=== PATIENT | female | born 1980 | race African-American/Black ===

== ENCOUNTER 2019-07-25 12:49 | Emergency (ER) | payer OTHER ==
[~2019-07-25] VITALS: Ht 172.7 cm; Wt 93.3 kg
[2019-07-25 12:49] VITALS: BP 118/79
== END 2019-07-25 13:16 | disposition home or self-care (01) ==
LOC: M ED 12:49
DX: O9A.212 Injury, poisoning and certain other consequences of external causes complicating pregnancy, second trimester (principal); S80.12XA Contusion of left lower leg, initial encounter; W18.39XA Other fall on same level, initial encounter; Y92.018 Other place in single-family (private) house as the place of occurrence of the external cause; Z3A.27 27 weeks gestation of pregnancy

== ENCOUNTER 2019-10-28 08:43 | Inpatient (IN) | payer OTHER ==
[~2019-10-28] VITALS: Ht 172.7 cm; Wt 107.7 kg
[2019-10-28] VITALS (39 sets, daily range): BP systolic 94–180; BP diastolic 53–107
[2019-10-28] MEDS ORDERED: LACTATED RINGER'S 1000 ML IV STA ×2 (09:30→18:36)
[2019-10-28] MEDS ORDERED: miSOPROStol 50 MCG 1/2 TAB (S0191) PO ONE ×2 (09:30→15:45)
[2019-10-28] MEDS ORDERED: FAMO1TAB25 PO (10:00)
[2019-10-28] MEDS ORDERED: PRENTAB9 PO (10:00)
--- NOTE | 2019-10-28 10:07 | HPEPDOC ---
Obstetrical History & Physical General Date of Admission Oct 28, 2019 at 08:43 History of Present Illness Ms. Peace is a 39yo at 41+0wks gestation presents to D for post dates ind uction. She is here today with her spouse. She reports +FM, denies LOF/VB/CTX. Her EDC is 21OCT2019; These dates are based on IVF/embryo transfer on 02FEB2019. Her is complicated by excessive weight gain (79lbs) and uterine fibroids (largest is anterior at 3.87cm). Blood type is O Positive, GBS Negative, HIV Negative, GGlucose screen WNL (124). 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 history Past Medical History Surgical History: Diagnostic laparoscopy Family History Significant Family History: No pertinent family hx Social History Marital Status: Family situation: Spouse/partner home Psychosocial History: No pertinent psych hx * Smoker: non-smoker Alcohol: Denies Drugs: denies Abuse Violence Screening Have you been hit/kicked/slapp: No Have you been sexually assault: No Imunizations Tdap status: current Influenza Status: current Allergies Coded Allergies: No Known Allergies (Unverified , 07/25/19) Medications No Active Prescriptions or Reported Meds Physical Examination Physical Examination O: VSS, initial BP mild range elevated, repeat WNL, afebrile; pt denies TINSLEY/visual changes/RUQ pain FHR: 135, minimal variability (periods of moderate variability present), accels present, no decels CTX: present, but occasional; pt denies feeling any VE at 0924: 1.5/40/-3, moderate consistency and posterior; no bloody show EFW by ciaran [id number] GENERAL: Alert and oriented times three. BREAST: . ABDOMEN: Gravid and non-tender to touch FETUS: Is vertex by Luan and SVE HEART RATE: Regular rate. LUNGS: Observed nonlabored breathing. EXTREMITIES: Bilateral pedal edema. Laboratory Data 24H LABS Laboratory Tests 2 10/28/19 08:53: Serology Scanned Report Hepatitis B Testing Pertinent Laboratoy Data Blood Type: O+ RBC Antibody Screen: Negative HIV: Negative Hepatitis B: Negative Rapid Plasma Reagin: Nonreactive Rubella: Immune Varicella: Immune Chlamydia/Gonorrhea: Negative Group B Streptococcus: Negative Anatomy Ultrasound Ultrasound Date: Jun 04, 2019 Placenta Location: Anterior (anterior, posterior, and right lateral) Normal Anatomy: Yes Placenta Previa: No Other Ultrasounds 09/03/2019: Growth US at 33+1wks, 63%tile Assessment/Plan Assessment A: Ms. Peace is a 39yo at 41+0wks admitted for IOL d/t post dates. Category II FHT d/t minimal variability. GBS Negative, O Positive blood type. Plan P: Admit to LND, Consented for IOL and delivery. PIV start, admission labs collected LR bolus, then can hydrated PO Regular diet while on cytotec Start IOL via buccal cytotec and CRB Will consider pitocin when appropriate CEFM x2 for one hour after cytotec; intermittent after with Category I FHT; continuous when appropriate Anticipate Consult with OB if indicated SHAWN ROBERTS CNM Oct 28, 2019 10:07
[2019-10-28 10:08] LABS: HEMATOCRIT 39.2 % (36.0-47.0); HEMOGLOBIN 13.4 g/dl (12.0-15.5); MEAN CORPUSCULAR HEMOGLOBIN 31.1 pg (27.0-33.0); MEAN CORPUSCULAR HGB CONC 34.2 g/dl (32.0-36.5); PLATELET COUNT, AUTOMATED 141 10^3/uL (150-450); RED BLOOD COUNT 4.31 10^6/uL (4.00-5.40); WHITE BLOOD COUNT 6.5 10^3/uL (4.0-10.0)
[2019-10-28 11:00] LABS: ALT/SGPT 27 U/L (12-78); BILIRUBIN,TOTAL 0.2 MG/DL (0.2-1.0); GLOMERULAR FILTRATION RATE > 60.0 (>60); LDH LACTATE DEHYDROGENASE 204 U/L (84-246); URIC ACID 6.5 MG/DL (2.6-6.0)
[2019-10-28 11:36] LABS: TOTAL PROTEIN,RANDOM URINE 32.3 MG/DL (0.0-12.0)
[2019-10-28] MEDS: FAMOTIDINE 20 MG TAB PO SCH ×2 (13:56→21:00)
[2019-10-28] MEDS ORDERED: SLF 3 ML SYR IV PRN (16:00)
--- NOTE | 2019-10-28 16:06 | IPNPDOC ---
Obstetrical Progress Note Date of Service Oct 28, 2019 Subjective Ms. Peace is a 39yo at 41+0wks undergoing IOL for post date. She has a new dx of GHTN d/t onset of mild and severe range BPs noticed after admission. She continues to deny TINSLEY/Visual changes/RUQ pain. She did have c/o indigestion (has had GERD during ); she received Pepcid and felt relief. She has been able to rest throughout the day thus far. Multiple family members are at the bedside. Objective O: BP range from normotensive to mild range. When severe range were noted, her c uff was changed and then BP was taken manually. Her last BP was 139/78. FHR: 135, moderate variability, + accels, no decels noted CTX: irregular and mild; pt only feels cramps VE: deferred at this time Pre-E labs: Uric acid 6.5; platelets 141, PC ratio 0.231, AST/ALT WNL Labs reviewed with Dr. Rouse Vital Signs Date Time Temp Pulse Resp B/P (MAP) Pulse Ox O2 Delivery O2 Flow Rate FiO2 10/28/19 15:09 66 139/78 (98) 10/28/19 14:09 97.7 18 100 Room Air 97.7 Assessment and Plan Status: Reassuring Group B Streptococcus: Negative Anticipate: Vaginal Delivery Additional Comments A: PDIOL, GHTN (currently asymptomatic and BPs range from mild range to normotensive); Category I FHT. S/P Cytotec #1 P: Close monitoring of BPs Repeat buccal cytotec (2nd dose) CEFM per protocol; intermittent monitoring when able to with Category I FHT Will reexamine 4 hours after administration of 2nd dose PO and IV hydration, clear liquid diet Anticipate Consult with OB if indicated SHAWN ROBERTS CNM Oct 28, 2019 16:06
[2019-10-28] MEDS ORDERED: LR 1,000 ML IV SCH ×2 (18:36→22:27)
[2019-10-28] MEDS ORDERED: OXYTOCIN DRIP 30 UNITS in IV 1 EA IV SCH (19:45)
--- NOTE | 2019-10-28 19:54 | IPNPDOC ---
Obstetrical Progress Note Date of Service Oct 28, 2019 Subjective Ms. Peace is a 39yo GP0 at 41wks undergoing IOL for Postdates and GHTN. She is s/p 2 doses of PO cytotec. She reports regular contractions that she has to breath through and is feeling uncomfortable. She reports bloody show, +FM; she denies LOF. Objective O: VSS, BPs remain normotensive. Her last BP was 167/89, but was taken during a contraction. The RN has not repeated another BP reading because pt had an emesis episode. Pt is asymptomatic, no TINSLEY/Visual disturbances, RUQ pain FHR 125, moderate variability, no 15x15 accels, intermittent late decelerations noted (interventions performed, LR bolus, repositioned) CTX: 2-3, regular, mild/moderate by palpation VE: 3.5/70/-3, posterior position, consistency is soft, bloody show present Vital Signs Date Time Temp Pulse Resp B/P (MAP) Pulse Ox O2 Delivery O2 Flow Rate FiO2 10/28/19 18:21 65 18 158/93 (114) 10/28/19 17:01 97.1 97.1 10/28/19 14:09 100 Room Air Sterile Vaginal Examination Postion/Presentation: Cephalic presentation Assessment and Plan Group B Streptococcus: Negative Anticipate: Vaginal Delivery Additional Comments A: 39yo at 41wks, undergoing IOL, Category II FHT d/t intermittent late decelerations (interventions ongoing); entering into early labor P: CEFM x2 Close monitoring of Blood pressure; notify provider with severe range BPs or pt becomes symptomatic Start pitocin per low dose protocol Report provided to Dr. Rouse Continue to monitor maternal/ status Anticipate SHAWN ROBERTS CNM Oct 28, 2019 19:54
[2019-10-28] MEDS ORDERED: ONDANSETRON 4MG/2ML VIAL (J2405) As Ordered ONE (21:10)
[2019-10-28] MEDS ORDERED: ONDANSETRON 4MG/2ML VIAL (J2405) IV ONE (21:30)
[2019-10-28] MEDS ORDERED: SLF 3 ML SYR IV SCH (22:00)
[2019-10-28] MEDS ORDERED: FENTANYL 2MCG/ML ROPIVACAINE 0.2% IN 0.9% NACL 100ML IVBAG As Ordered ONE (22:25)
[2019-10-28] MEDS ORDERED: LACTATED RINGER'S 1000 ML IV ONE (22:30)
[2019-10-28] MEDS ORDERED: EPIDURAL/PCA KEYS XX PRN (22:45)
[2019-10-28] MEDS ORDERED: LACTATED RINGER'S 1000 ML IV PRN (22:45)
[2019-10-28] MEDS ORDERED: REFRIGERATOR IV KEYS XX PRN (22:45)
[2019-10-28] MEDS ORDERED: EPIDURAL COMMENT XX SCH (22:45)
[2019-10-28] MEDS ORDERED: ONDANSETRON 4MG/2ML VIAL (J2405) IV PRN (22:45)
[2019-10-28] MEDS ORDERED: diphenhydrAMINE INJ 50MG/ML VIAL (J1200) IV PRN (22:45)
[2019-10-28] MEDS ORDERED: ePHEDrine SULFATE 25 MG/5 ML(5MG/ML) SYRINGE IV PRN (22:45)
[2019-10-28] MEDS ORDERED: NALOXONE INJ 0.4 MG/1 ML VIAL (J2310) IV PRN (22:45)
[2019-10-28] MEDS ORDERED: FENTANYL/ROPIVACAINE/NACL BAG 100 ML EPIDURAL SCH (22:45)
[2019-10-29] VITALS (42 sets, daily range): BP systolic 109–202; BP diastolic 64–100
[2019-10-29 02:26] LABS: CORD GAS ABE V -9.2; CORD GAS HCO3 V 18.4 MEQ/L; CORD GAS O2 SAT V 59.1 %; CORD GAS PCO2 V 45.6 mmHg; CORD GAS PH V 7.223 UNITS; CORD GAS PO2 V 28.7 mmHg; CORD GAS SBC V 16.4 MEQ/L; CORD GAS TCO2 V 19.8 MEQ/L
[2019-10-29 02:27] LABS: CORD GAS ABE A -10.6; CORD GAS HCO3 A 19.3 MEQ/L; CORD GAS O2 SAT A 16.5 %; CORD GAS PCO2 A 60.3 mmHg; CORD GAS PH A 7.124 UNITS; CORD GAS PO2 A 14.2 mmHg; CORD GAS SBC A 14.6 MEQ/L; CORD GAS TCO2 A 21.2 MEQ/L
[2019-10-29] MEDS ORDERED: OXYTOCIN DRIP 30 UNITS in IV 1 EA IV SCH (02:55)
[2019-10-29] MEDS ORDERED: ACETAMINOPHEN TAB 650MG DOSE (2X325MG) PO PRN (03:00)
[2019-10-29] MEDS ORDERED: DOCUSATE SODIUM 100 MG CAP PO PRN (03:00)
[2019-10-29] MEDS ORDERED: METHYLERGONOVINE MALEATE 0.2 MG TAB PO PRN (03:00)
[2019-10-29] MEDS ORDERED: MOM 30ML SUSPENSION UDC PO PRN (03:00)
[2019-10-29] MEDS ORDERED: IBUPROFEN 600 MG TAB PO PRN (03:00)
[2019-10-29] MEDS ORDERED: DIBUCAINE 1% OINTMENT 30GM TOP PRN (03:00)
[2019-10-29] MEDS ORDERED: MEASLES,MUMPS,RUBELLA VACCINE INJ (MMR-II) (90707) SC SCH (03:00)
[2019-10-29] MEDS ORDERED: IBUPROFEN 800 MG TAB PO PRN (03:00)
[2019-10-29] MEDS ORDERED: ACETAMINOPHEN 500 MG TAB PO PRN (03:00)
[2019-10-29] MEDS ORDERED: ANUSOL HC CREAM 30GM TOP PRN (03:00)
[2019-10-29] MEDS ORDERED: OXYTOCIN INJ 10 UNITS/ML VIAL (J2590) IV ONE ×2 (03:00→12:45)
[2019-10-29] MEDS ORDERED: LABETALOL HCL 100 MG/20 ML VIAL IV STA ×2 (03:56→04:52)
[2019-10-29] MEDS ORDERED: RHOGAM 300 MCG (1500 IU) INJ (J2790) IM SCH (04:00)
[2019-10-29] MEDS ORDERED: SLF 3 ML SYR IV PRN (08:30)
[2019-10-29] MEDS: PRENATAL VITAMINS CHEWABLE TABLET PO SCH (08:36)
[2019-10-29] MEDS: FAMOTIDINE 20 MG TAB PO SCH ×2 (08:36→20:06)
--- NOTE | 2019-10-29 10:00 | IPN ---
DATE: 10/28/2019 This lady is a 39-year-old 1 at 41+ weeks of gestation, was here for induction of labor being post dates. Her risk factors is she is has gestational hypertension. She has gained 80 pounds in her and she has uterine fibroids. She was on initial examination, 1 cm, with category 1 strip and she was started on Cytotec. She has had two doses of Cytotec. Her blood pressures are variable. Sometimes they are midrange, sometimes they are high range. Her highest peak was 167/89. She never demonstrated severe range 160/100. Presently, pulse is 65, respirations are 18 and she is afebrile at 98.4. Pitocin was started. As the contractions weaned off to be 2-4 minutes apart and mild intensity, she was started on Pitocin at 4 milliunits at maximum, and she was having some significant bloody show and significant pelvic pain. On examination presently she has bulging membranes, 90% effaced, 7 cm, -2 station and she is planning on having an epidural. Our plan of care is that after the epidurals is in place and she has adequate pain control to do an AROM and allow her to progress. On anticipation that progress will occur post epidural, we will monitor closely for preeclampsia. Her pre- blood work showed her hemoglobin 13.4, hematocrit 39.2 and platelets were a little low at 141. In her chemistry the only significant was uric acid was elevated at 6.5. Her protein creatinine ratio protein is 0.22.
--- NOTE | 2019-10-29 13:37 | DN ---
DATE: 10/29/2019 This lady is a 39-year-old 1 who was admitted for induction of labor post dates at 41 weeks and advanced maternal age. She had a spontaneous vaginal delivery with epidural in place, live female infant, 6 pounds 9 ounces, 2970 grams, covered in meconium which was old. as of 6, 7, and 9 at 1, 5 and 10 minutes, respectively. Arterial pH 7.21, base excess -10.6. Venous pH 7.22, base excess -9.2. Baby was suctioned at the perineum and then was suction subsequently at the incubator. Placenta delivered spontaneously after, three-vessel cord, membranes and tissues intact and was meconium stained. Uterus contracted well down under Pitocin. She had one vaginal varicosity, which was oversewn with a [id number] in order to suppress bleeding. Sphincter was intact. Lateral, anterior and energy efficiency engineer cody were intact. Uterus contracted well under Pitocin. The patient and baby tolerated procedure well.
[2019-10-29] MEDS: SLF 3 ML SYR IV SCH (22:00)
[2019-10-30 02:01] VITALS: BP 136/86
[2019-10-30] MEDS: SLF 3 ML SYR IV SCH (06:00)
[2019-10-30 06:40] VITALS: BP 140/88
--- NOTE | 2019-10-30 06:43 | IPNPDOC ---
Text Note Date of Service The patient was seen on 10/30/19. NOTE patient is a 39 yo S/P FAVD ppd #1. Delivery complicated by placental abruption. Patient has history of bilateral salpingectomy for hydrosalpinx. She had IVF this . Today without concerns. She is tolerating normal activities without problem. Patient plans on breast feeding. vitals: normal NAD abd: nd, soft, nt, fundus @ u-1 le: no edema/erythema/tenderness a/p patient ppd #1, encourage ambulation and BF. had picked up medications at [facility] con leave form filled out and given. anticipate d/c home on ppd #2. Le, DO VS,Fishbone, I+O VS, Fishbone, I+O Vital Signs Date Time Temp Pulse Resp B/P (MAP) Pulse Ox O2 Delivery O2 Flow Rate FiO2 10/30/19 02:01 98.0 69 18 136/86 (103) 99 98.0 10/29/19 22:00 Room Air I&O- Last 24 Hours up to 6 AM 10/30/19 06:00 Intake Total 1430 ml Output Total 770 ml Balance 660 ml QUYNH DE LA O DO Oct 30, 2019 06:43
[2019-10-30 07:07] LABS: HEMATOCRIT 36.7 % (36.0-47.0); HEMOGLOBIN 12.1 g/dl (12.0-15.5); MEAN CORPUSCULAR HEMOGLOBIN 30.7 pg (27.0-33.0); MEAN CORPUSCULAR VOLUME 93.1 fl (80.0-96.0); PLATELET COUNT, AUTOMATED 123 10^3/uL (150-450); RED BLOOD COUNT 3.94 10^6/uL (4.00-5.40); WHITE BLOOD COUNT 11.2 10^3/uL (4.0-10.0)
[2019-10-30] MEDS: FAMOTIDINE 20 MG TAB PO SCH ×2 (09:02→21:07)
[2019-10-30] MEDS: PRENATAL VITAMINS CHEWABLE TABLET PO SCH (09:02)
[2019-10-30 10:01] VITALS: BP 139/92
[2019-10-30 14:00] VITALS: BP 154/88
[2019-10-30 17:46] VITALS: BP 139/77
[2019-10-31 06:00] VITALS: BP 146/88
[2019-10-31] MEDS: PRENATAL VITAMINS CHEWABLE TABLET PO SCH (09:05)
[2019-10-31] MEDS: FAMOTIDINE 20 MG TAB PO SCH (09:05)
--- NOTE | 2019-10-31 10:44 | IPNPDOC ---
Progress Note Date of Service: Oct 31, 2019 Day#: 1 Progress Note PPD 1 SUBJECT: Ni is a 39yo [id number], achieved IVF w/hx of bilateral salpingectomy for hydrosalpinx, now s/p uncomplicated after undergoing IOL for LTG at 41wk, doing well day # 1. She was diagnosed with mild range bp's during her labor course, not prior. She has been ambulating, voiding spontaneously without issue and tolerating regular diet. Breast feeding without issue. Reports lochia is like a normal period. No f/c/n/v/CP/SOB. No headache or vision changes. OBJECTIVE: VITAL SIGNS: BP's normal to mild range, afebrile. Alert and oriented times three. Abdomen: Fundus firm at U-2. Soft, NTTP. Extremities: no pain with palpation of calves ASSESSMENT: Ni is a 39yo [id number], achieved IVF w/hx of bilateral salpingectomy for hydrosalpinx, now s/p uncomplicated after undergoing IOL for LTG at 41wk, doing well day # 1. She was diagnosed with mild range bp's during her labor course, not prior. Normal to mild range bp's, afebrile, hemodynamically stable with no evidence of infection. No e/o pre- eclampsia. PLAN: 1. Discharge to home today. 2. Tylenol and Motrin for pain. 3. Encourage breast feeding and ambulation. 4. No contraception needed 5. Patient to follow up in 2-3 days for bp check at [facility] 6. Discussed return precautions at length. Dr. Azucena Pedroza MD VS, I&O, [facility] Vital Signs/I&O Vital Signs Date Time Temp Pulse Resp B/P (MAP) Pulse Ox O2 Delivery O2 Flow Rate FiO2 10/31/19 06:00 97.8 82 16 146/88 (107) 96 Room Air 97.8 Azucena Pedroza MD Oct 31, 2019 10:44
[2019-10-31] MEDS ORDERED: DOCU100C16 PO (10:45)
[2019-10-31] MEDS ORDERED: IBUP80TA PO (10:45)
[2019-10-31] MEDS ORDERED: ACET-683 PO (10:45)
--- NOTE | 2019-10-31 10:48 | DS.PDOC ---
Discharge Summary General Date of Admission Oct 28, 2019 at 08:43 Date of Discharge Oct 31, 2019 Attending Physician: Azucena Pedroza MD Discharge Summary PROCEDURES PERFORMED DURING STAY: ADMITTING DIAGNOSES: 1. Induction of labor for late term gestation DISCHARGE DIAGNOSES: 1. Induction of labor for late term gestation, delivered via 2. Gestational hypertension COMPLICATIONS/CHIEF COMPLAINT: Induction. HISTORY OF PRESENT ILLNESS/HOSPITAL COURSE: Ni is a 39yo [id number], achieved IVF w/hx of bilateral salpingectomy for hydrosalpinx, now s/p uncomplicated after undergoing IOL for LTG at 41wk, doing well day # 1. She was diagnosed with mild range bp's during her labor course, not prior. Benign course. Normal to mild range bp's, afebrile, hemodynamically stable with no evidence of infection. No e/o pre-eclampsia. DISCHARGE MEDICATIONS: Please see below. ALLERGIES: Please see below. PHYSICAL EXAMINATION ON DISCHARGE: VITAL SIGNS: BP's normal to mild range, afebrile. Alert and oriented times three. Abdomen: Fundus firm at U-2. Soft, NTTP. Extremities: no pain with palpation of calves LABORATORY DATA: Please see below. ACTIVITY: vaginal rest no heavy lifting 6 weeks DIET: regular DISPOSITION: home DISCHARGE PLAN/INSTRUCTIONS: 1. Discharge to home today. 2. Tylenol and Motrin for pain. 3. Encourage breast feeding and ambulation. 4. No contraception needed 5. Patient to follow up in 2-3 days for bp check at [facility] 6. Discussed return precautions at length. DISCHARGE CONDITION: Stable TIME SPENT ON DISCHARGE: Greater than [address] Azucena Pedroza MD Vital Signs/I&Os Vital Signs Date Time Temp Pulse Resp B/P (MAP) Pulse Ox O2 Delivery O2 Flow Rate FiO2 10/31/19 06:00 97.8 82 16 146/88 (107) 96 Room Air 97.8 Discharge Medications Scheduled Famotidine (Famotidine) 10 Mg Tablet, 2 TAB PO DAILY, (Reported) No.137/Iron/Folic Acd ( Vitamin Tablet) 1 Each Tablet, 1 TAB PO DAILY, (Reported) Scheduled PRN Acetaminophen (Acetaminophen) 500 Mg Tablet, 1,000 MG PO Q6HP PRN for PAIN LEVEL 6-10 Docusate Sodium (Docusate Sodium) 100 Mg Capsule, 100 MG PO QHSP PRN for CONSTIPATION Ibuprofen (Ibuprofen) 800 Mg Tablet, 800 MG PO Q8HP PRN for PAIN LEVEL 6-10 Allergies Coded Allergies: No Known Allergies (Unverified , 07/25/19) Azucena Pedroza MD Oct 31, 2019 10:48
== END 2019-10-31 12:50 | disposition home or self-care (01) | DRG 807 ==
LOC: M LDI 08:43 → M OBS 10-29 09:29
PROVIDERS: ADMIT Registered Nurse Maternal Newborn; ATTEND Obstetrics & Gynecology
PROC: 3E0P7GC Introduction of Other Therapeutic Substance into Female Reproductive, Via Natural or Artificial Opening (ICD-10-PCS; 2019-10-28)
PROC: 10E0XZZ Delivery of Products of Conception, External Approach (ICD-10-PCS; principal; 2019-10-29)
DX: O48.0 Post-term pregnancy (principal); Z37.0 Single live birth; Z3A.41 41 weeks gestation of pregnancy; O34.13 Maternal care for benign tumor of corpus uteri, third trimester; O13.4 Gestational [pregnancy-induced] hypertension without significant proteinuria, complicating childbirth; O75.89 Other specified complications of labor and delivery

== ENCOUNTER 2019-11-03 14:18 | Inpatient (IN) | payer OTHER ==
[2019-11-03] VITALS (13 sets, daily range): BP systolic 125–190; BP diastolic 69–106
[~2019-11-03] VITALS: Ht 172.7 cm; Wt 99.9 kg
[~2019-11-03 14:18] MED LIST: ACET-683 PO; DOCU100C16 PO; FAMO1TAB25 PO; IBUP80TA PO; PRENTAB9 PO
[2019-11-03] MEDS ORDERED: MOM 30ML SUSPENSION UDC PO PRN (15:00)
[2019-11-03] MEDS ORDERED: CALCIUM CARBONATE 500 MG CHEW U/D PO PRN (15:00)
[2019-11-03] MEDS ORDERED: ANUSOL HC CREAM 30GM TOP PRN (15:00)
[2019-11-03] MEDS ORDERED: IBUPROFEN 800 MG TAB PO PRN (15:00)
[2019-11-03] MEDS ORDERED: ONDANSETRON 4MG/2ML VIAL (J2405) IV PRN (15:00)
[2019-11-03] MEDS ORDERED: SIMETHICONE 80 MG CHEW TAB PO PRN (15:00)
[2019-11-03] MEDS ORDERED: ACETAMINOPHEN 500 MG TAB PO PRN (15:00)
[2019-11-03] MEDS ORDERED: LABETALOL HCL 100 MG/20 ML VIAL IV ONE (15:15)
[2019-11-03] MEDS ORDERED: LABETALOL 200 MG TAB As Ordered ONE (15:29)
[2019-11-03] MEDS ORDERED: LABETALOL 200 MG TAB PO ONE (15:30)
--- NOTE | 2019-11-03 15:53 | HPEPDOC ---
General Date of Admission Date of Service: Nov 03, 2019 Attending Physician: Evonne Buck MD Chief Complaint The patient is a 39-year-old female admitted with a reason for visit of Elevated Bp PPD 5. Source: Patient Exam Limitations: No limitations Timing/Duration: Day(s) (2-3) Severity: Moderate Associated Symptoms: Chills, Headaches (Decreased with Motrin. No visual changes.) History of Present Illness Past few days patient had on/off headaches. Mostly related to stress. Yesterday was the worst but decreased with Motrin. Seen in clinic today for f/u BP check and found to have elevated BPs 160-170s/90-100s. Scheduled due to HTN of 130s-140s/80-90s. No HTN. No proteinuria. Preeclamptic labs were normal. Home Medications Scheduled Famotidine (Famotidine) 10 Mg Tablet, 2 TAB PO DAILY, (Reported) No.137/Iron/Folic Acd ( Vitamin Tablet) 1 Each Tablet, 1 TAB PO DAILY, (Reported) Scheduled PRN Acetaminophen (Acetaminophen) 500 Mg Tablet, 1,000 MG PO Q6HP PRN for PAIN LEVEL 6-10 Docusate Sodium (Docusate Sodium) 100 Mg Capsule, 100 MG PO QHSP PRN for CONSTIPATION Ibuprofen (Ibuprofen) 800 Mg Tablet, 800 MG PO Q8HP PRN for PAIN LEVEL 6-10 Allergies Coded Allergies: No Known Allergies (Unverified , 07/25/19) Past Medical History Medical History None Surgical History Diagnostic Laparoscopy Family History Significant Family History: No pertinent family hx Social History * Smoker: Denies, non-smoker Alcohol: Denies Drugs: denies Psychosocial History: No pertinent psych hx A-FIB/CHADSVASC A-FIB History Current/History of A-Fib/PAF?: No Current PO Anticoag Therapy: No Age/Risk Factor Scoring CHADSVASC: CHADSVASC Response (Comments) Value Age Risk Factor Age < 65 years old 0 Gender Risk Factor Female 1 Hx of CHF No 0 Hx of HTN No 0 Hx of Stroke/TIA/or VTE No 0 Hx of Diabetes No 0 Hx of Vascular Disease No 0 Total 1 Treatment Treatment ordered: NONE Reason Anticoagulant not given: Not indicated/[id number] Review of Systems Constitutional: Denies: Chills, Fever, Malaise, Night Sweats, Weakness, Fatigue, Weight Loss, Lethargy, Other Eyes: Denies: Pain, Vision change, Conjunctivae inflammation, Eyelid inflammation, Redness, Other ENT: Reports: Head Aches; Denies: Ear Pain, Dysphagia, Sinus Congestion, Post Nasal Drip, Sore Throat, Epistaxis, Other Symptoms Skin: Reports: Bruising (feet); Denies: Rash, Lesions, Jaundice, Itching, Dry, Breakdown, Nail Changes, Other Pulmonary: Denies: Dyspnea, Cough, Pleuritic Chest Pain, Other Symptoms Cardiovascular: Reports: Edema (legs and hands ); Denies: Chest Pain, Palpitations, Orthopnea, Paroxysmal Noc. Dyspnea, Lt Headedness, Other Symptoms Gastrointestinal: Denies: Nausea, Vomiting, Abdominal Pain, Diarrhea, Constipation, Melena, Hematochezia, Other Symptoms Genitourinary: Denies: Dysuria, Frequency, Incontinence, Hematuria, Retention, Other Symptoms Hematologic: Denies: Bruising, Bleeding Excessively, Petecchia, Purpura, Enlarged Lymph Nodes, Other Hematologic Endocrine: Denies: Polydipsia, Polyphagia, Polyuria, Heat Intolerance, Cold Intolerance, Other Endocrine Sx Musculoskeletal: Reports: Leg Pain, Foot Pain (from edema); Denies: Neck Pain, Back Pain, Shoulder Pain, Arm Pain, Hand Pain, Joint Pain, Muscle Pain, Spasms, Other Symptoms Neurological: Denies: Weakness, Numbness, Incoordination, Change in speech, Confusion, Seizures, Other Symptoms Psych: Denies: Mood Normal, Anxiety, Depression, Memory Issues, Thoughts of Self Harm, Anger, Thoughts of Harming Other, Other Psych Physical Examination General Exam: Positive: Alert, Cooperative, No Acute Distress Eye Exam: Positive: PERRLA; Negative: Sclera icteric ENT Exam: Positive: Mucous membr. moist/pink Neck Exam: Positive: Supple; Negative: thyromegaly, Lymphadenopathy Chest Exam: Positive: Clear to auscultation Heart Exam: Positive: Rate Normal, Regular Rhythm Abdomen Exam: Positive: Soft; Negative: Tenderness Extremity Exam: Positive: Edema, Swelling (+2) Skin Exam: Negative: Rash Neuro Exam: Positive: Normal Gait, Normal Speech, Reflexes 2+ Psych Exam: Positive: Mental status NL, Mood NL Vital Signs Reviewed, BP 180s/100 Laboratory Data Labs 24H Laboratory Tests 2 11/03/19 15:27: CBC/BMP Assessment/Plan Patient is a PPD5 with GHTN in severe range. She warrants observation due to risk of CVA. Preeclampsia work up and observation to be performed. However, it does not appear to be the picture. She will get a heplock, in case acute IV access is needed from severe hypertensive crisis. Initial medication with IV Labetolol to get her out of CVA range and x1 dose Lasix to assist with severe edema. Then switch to PO Labetolol and monitor response. Tylenol for headache. Otherwise routine care. Plan / VTE VTE Prophylaxis Ordered?: No VTE Exclusion Mechanical Proph: Low Risk for VTE VTE Exclusion Pharmacological: At Low Risk for VTE Plan IVF: Discontinue (IV HL) Diet: Continue Current (Regular) Activity: Continue Current (Ad li) Medications: Change to PO (after 1 dose IV labetolol) Diagnostics: Check Labs (preeclampsia) Evonne Buck MD Nov 03, 2019 15:52
[2019-11-03] MEDS ORDERED: FUROSEMIDE 20 MG/2 ML VIAL (J1940) IV ONE (16:00)
[2019-11-03] MEDS ORDERED: LABETALOL HCL 100 MG/20 ML VIAL IV STA (16:10)
[2019-11-03 16:19] LABS: ALT/SGPT 85 U/L (12-78); BILIRUBIN,TOTAL 0.5 MG/DL (0.2-1.0); CREATININE FOR GFR 0.82 MG/DL (0.55-1.30); GLOMERULAR FILTRATION RATE > 60.0 (>60); LDH LACTATE DEHYDROGENASE 341 U/L (84-246); URIC ACID 8.1 MG/DL (2.6-6.0)
[2019-11-03 16:36] LABS: HEMATOCRIT 39.5 % (36.0-47.0); HEMOGLOBIN 13.1 g/dl (12.0-15.5); MEAN CORPUSCULAR HEMOGLOBIN 30.8 pg (27.0-33.0); MEAN CORPUSCULAR HGB CONC 33.2 g/dl (32.0-36.5); MEAN CORPUSCULAR VOLUME 92.9 fl (80.0-96.0); PLATELET COUNT, AUTOMATED 212 10^3/uL (150-450); RED BLOOD COUNT 4.25 10^6/uL (4.00-5.40); WHITE BLOOD COUNT 6.6 10^3/uL (4.0-10.0)
[2019-11-03] MEDS ORDERED: MAGNESIUM *L&D* 4 GM/100 ML BAG (40MG/ML) (J3475) As Ordered ONE (19:27)
[2019-11-03] MEDS ORDERED: LACTATED RINGERS As Ordered ONE (19:28)
[2019-11-03] MEDS ORDERED: MAGNESIUM SULFATE As Ordered ONE (19:28)
--- NOTE | 2019-11-03 19:28 | IPNPDOC ---
Text Note Date of Service The patient was seen on 11/03/19. NOTE Patient headache resolved with improving BP. Received total Labetolol 40mg IV and Labetolol 400mg PO. DTR +2. Edema +2 (Improved). Preeclampsia labs reviewed with borderline elevated LFTs. Will start magnesium sulfate. Unsure if GHTN vs preeclampsia, so will do magnesium for 12hr. Continue Labetolol. Labetolol 200mg PO BID with possible increase to 400mg. IV Labetolol PRN. VS,Fishbone, I+O VS, Fishbone, I+O Laboratory Tests 11/03/19 15:19 11/03/19 15:27 Vital Signs Date Time Temp Pulse Resp B/P (MAP) Pulse Ox O2 Delivery O2 Flow Rate FiO2 11/03/19 16:33 59 141/81 (101) 11/03/19 15:49 18 11/03/19 14:42 97.9 97.9 Evonne Buck MD Nov 03, 2019 19:28
[2019-11-03] MEDS ORDERED: LABETALOL HCL 100 MG/20 ML VIAL IV SCH (19:30)
[2019-11-03] MEDS ORDERED: MAG Sulf (L&D) 4 GM/100 ML 4 GM in IV 1 EA IV ONE (19:30)
[2019-11-03] MEDS ORDERED: CALCIUM GLUCONATE 1,000 MG in D5W MINI-BAG PLUS 100 ML IV PRN (19:30)
[2019-11-03] MEDS: LR 1,000 ML IV SCH (19:41)
[2019-11-03] MEDS ORDERED: LABETALOL 200 MG TAB PO SCH ×2 (21:00)
[2019-11-03] MEDS: DOCUSATE SODIUM 100 MG CAP PO SCH (23:44)
[2019-11-04] VITALS (25 sets, daily range): BP systolic 126–159; BP diastolic 69–100
[2019-11-04] MEDS: LACTATED RINGERS IV SCH ×2 (00:25→06:22)
[2019-11-04] MEDS: MAGNESIUM SULFATE IV SCH ×2 (00:25→06:22)
--- NOTE | 2019-11-04 05:15 | IPNPDOC ---
Progress Note Date of Service: Nov 04, 2019 Day#: 6 Progress Note SUBJECT: Patient is a 39-year-old 1 now Para 1001 status post uncomplicated spontaneous vaginal delivery day6 c/p GHTN. Initial BP were 130-140s/80s upon discharge. Upon admission BP were 170-190/90-110. Patient given Labetolol 40mg IV total and Labetolol 200mg PO (initial dose) then began Labetolol PO BID and began Magnesium sulfate for 12hrs seizure prevention. Lasix IVx1 due to severe edema. She has been voiding significantly spontaneously without issue and tolerating regular diet. Breast feeding without issue. Reports lochia is light. Headached resolved with BP resolving. OBJECTIVE: VITAL SIGNS: Within normal limits (now except most recent BP when she got up to breast feed), afebrile. Alert and oriented times three. Breath sounds clear to auscultation. Heart rate: Regular rate and rhythm, no murmurs, rubs or gallops. Abdomen: Fundus firm at U-2. Soft, NTTP. Minimal lochia. Lower extremeties +2 edema ASSESSMENT: She is a 39-year-old 1 now Para 1001 status post spontaneo us vaginal delivery PPD6 c/b GHTN. PLAN: 1. Discharge to home today if BP remain controlled after AM dose. 2. Tylenol and Motrin for pain. 3. Encourage breast feeding. 4. Magnesium sulfate to end at 8am. 5. Labetolol PO dose at 9AM VS, I&O, 24H, Abhinav Vital Signs/I&O Vital Signs Date Time Temp Pulse Resp B/P (MAP) Pulse Ox O2 Delivery O2 Flow Rate FiO2 11/04/19 04:34 72 147/95 (112) 11/04/19 03:35 97.2 16 97.2 I&O- Last 24 Hours up to 6 AM 11/04/19 06:00 Intake Total 1125 ml Output Total 6000 ml Balance -4875 ml Laboratory Data 24H LABS Laboratory Tests 2 11/03/19 15:19: Nucleated Red Blood Cells % (auto) 0.0 11/03/19 15:27: Fibrinogen 518H, Glomerular Filtration Rate > 60.0, Uric Acid 8.1H, Total Bilirubin 0.5, Aspartate Amino Transf (AST/SGOT) 51H, Alanine Aminotransferase (ALT/SGPT) 85H, Lactate Dehydrogenase 341H 11/03/19 23:13: Magnesium Level 4.3H 11/04/19 03:07: Magnesium Level 4.7*H CBC/BMP Laboratory Tests 11/03/19 15:19 11/03/19 15:27 Evonne Buck MD Nov 04, 2019 05:15
[2019-11-04] MEDS ORDERED: LABETALOL 100 MG TAB PO ONE (07:00)
[2019-11-04 07:38] LABS: HEMATOCRIT 37.9 % (36.0-47.0); MEAN CORPUSCULAR HEMOGLOBIN 31.4 pg (27.0-33.0); MEAN CORPUSCULAR HGB CONC 34.3 g/dl (32.0-36.5); MEAN CORPUSCULAR VOLUME 91.5 fl (80.0-96.0); PLATELET COUNT, AUTOMATED 205 10^3/uL (150-450); RED BLOOD COUNT 4.14 10^6/uL (4.00-5.40); WHITE BLOOD COUNT 5.6 10^3/uL (4.0-10.0)
--- NOTE | 2019-11-04 08:07 | IPNPDOC ---
Text Note Date of Service The patient was seen on 11/04/19. NOTE patient is 39 yo PPD #5, admitted for pre-eclampsia with severe range BP HD #2. Patient is currently on Mag for seizure prophy. She has received labetalol 60mg IV and lasix 20mg IV since admission. Currently on labetalol 300mg BID. This morning patient reports she feels much improved from admission. Denies TINSLEY/N/V/change in vision/abdominal pain. She is drink ample oral fluids vitals: 151/87, P65 NAD cta s w/r/r s1s2 s m/g/c abd: nd, soft,nt LE: non pitting edema bilaterally, symmetrical DTR: +1 patella reflex, no clonus UOP: > 300cc/hr a/p patient ppd #5 with pre-eclampsia with severe range BP HD#2, clinically improving. Continue with Mag for another 12hrs. total fluid intake restrictions to 125cc/hr. titrate antihypertensive medications as needed. DO Emma VS,Abhinav, I+O VS, Nathanaele, I+O Laboratory Tests 11/03/19 15:19 11/03/19 15:27 11/04/19 07:07 Vital Signs Date Time Temp Pulse Resp B/P (MAP) Pulse Ox O2 Delivery O2 Flow Rate FiO2 11/04/19 06:49 65 145/82 (103) 11/04/19 03:35 97.2 16 97.2 I&O- Last 24 Hours up to 6 AM 11/04/19 06:00 Intake Total 1250 ml Output Total 6000 ml Balance -4750 ml QUYNH DE LA O DO Nov 04, 2019 08:07
[2019-11-04 08:12] LABS: ALBUMIN 3.4 GM/DL (3.2-5.2); ALT/SGPT 98 U/L (12-78); BILIRUBIN,TOTAL 0.4 MG/DL (0.2-1.0); BLOOD UREA NITROGEN 11 MG/DL (7-18); CALCIUM LEVEL 8.6 MG/DL (8.5-10.1); CARBON DIOXIDE LEVEL 25 MEQ/L (21-32); CHLORIDE LEVEL 105 MEQ/L (98-107); CREATININE FOR GFR 0.73 MG/DL (0.55-1.30); GLOMERULAR FILTRATION RATE > 60.0 (>60); GLUCOSE, FASTING 74 MG/DL (70-100); POTASSIUM SERUM 3.7 MEQ/L (3.5-5.1); SODIUM LEVEL 136 MEQ/L (136-145); TOTAL PROTEIN 7.2 GM/DL (6.4-8.2)
[2019-11-04] MEDS: PRENATAL VITAMINS CHEWABLE TABLET PO SCH (08:30)
[2019-11-04] MEDS: DOCUSATE SODIUM 100 MG CAP PO SCH ×2 (08:31→20:37)
[2019-11-04] MEDS ORDERED: LABETALOL 100 MG TAB PO SCH (09:00)
[2019-11-04] MEDS: LR 1,000 ML IV SCH (11:42)
[2019-11-04] MEDS ORDERED: LACTATED RINGERS IV SCH (15:00)
[2019-11-04] MEDS ORDERED: MAGNESIUM SULFATE IV SCH (15:00)
[2019-11-04] MEDS ORDERED: NIFEdipine 30 MG XL TAB PO SCH (17:00)
[2019-11-04] MEDS: LABETALOL 100 MG TAB PO SCH (20:38)
[2019-11-05 02:00] VITALS: BP 120/81
[2019-11-05 06:42] VITALS: BP 135/82
[2019-11-05 06:55] LABS: HEMATOCRIT 39.5 % (36.0-47.0); HEMOGLOBIN 13.5 g/dl (12.0-15.5); MEAN CORPUSCULAR HEMOGLOBIN 31.2 pg (27.0-33.0); MEAN CORPUSCULAR HGB CONC 34.2 g/dl (32.0-36.5); MEAN CORPUSCULAR VOLUME 91.2 fl (80.0-96.0); PLATELET COUNT, AUTOMATED 236 10^3/uL (150-450); RED BLOOD COUNT 4.33 10^6/uL (4.00-5.40)
[2019-11-05 07:19] LABS: ALBUMIN 3.3 GM/DL (3.2-5.2); ALT/SGPT 103 U/L (12-78); BILIRUBIN,TOTAL 0.6 MG/DL (0.2-1.0); BLOOD UREA NITROGEN 11 MG/DL (7-18); CALCIUM LEVEL 8.7 MG/DL (8.5-10.1); CARBON DIOXIDE LEVEL 26 MEQ/L (21-32); CHLORIDE LEVEL 108 MEQ/L (98-107); CREATININE FOR GFR 0.75 MG/DL (0.55-1.30); GLOMERULAR FILTRATION RATE > 60.0 (>60); GLUCOSE, FASTING 65 MG/DL (70-100); POTASSIUM SERUM 3.7 MEQ/L (3.5-5.1); SODIUM LEVEL 139 MEQ/L (136-145); TOTAL PROTEIN 7.2 GM/DL (6.4-8.2)
--- NOTE | 2019-11-05 08:23 | IPNPDOC ---
Text Note Date of Service The patient was seen on 11/05/19. NOTE Patient is a 39 yo s/p ppd #7, admitted for pre-eclampsia with severe BP hd #3. She completed 24hrs of Mag yesterday evening. She is currently on Nifedipine and Labatolol PO. She has no concerns this AM. She is breast feeding wthout problem. vitals: normal BP, nontachy, afebrile NAD abd: nd, soft, nt le: symmetrical bilaterally mild non pitting edema. a/p patient overall improved, responding to antihypertensive medication without problem. Start nifedipine 30 XL qam, continue with labetalol 300mg BID. monitor for one more day. possible discharge tomorrow. Le, DO VS,Abhinav, I+O VS, Fishbone, I+O Laboratory Tests 11/05/19 06:09 Vital Signs Date Time Temp Pulse Resp B/P (MAP) Pulse Ox O2 Delivery O2 Flow Rate FiO2 11/05/19 06:42 98.4 70 19 135/82 (99) Room Air I&O- Last 24 Hours up to 6 AM 11/05/19 06:00 Intake Total 2225 ml Output Total 2950 ml Balance -725 ml QUYNH DE LA O DO Nov 05, 2019 08:23
[2019-11-05] MEDS: PRENATAL VITAMINS CHEWABLE TABLET PO SCH (08:52)
[2019-11-05] MEDS: LABETALOL 100 MG TAB PO SCH ×2 (08:52→21:27)
[2019-11-05] MEDS: DOCUSATE SODIUM 100 MG CAP PO SCH ×2 (08:53→21:23)
[2019-11-05] MEDS: NIFEdipine 30 MG XL TAB PO SCH (08:53)
[2019-11-05 09:00] VITALS: BP 140/91
[2019-11-05] MEDS ORDERED: SLF 3 ML SYR IV PRN (09:30)
[2019-11-05 14:00] VITALS: BP 132/76
[2019-11-05] MEDS: SLF 3 ML SYR IV SCH ×2 (15:54→21:45)
[2019-11-05 18:12] VITALS: BP 146/91
[2019-11-05 21:30] VITALS: BP 122/67
[2019-11-06 01:45] VITALS: BP 127/75
[2019-11-06] MEDS: SLF 3 ML SYR IV SCH (06:00)
[2019-11-06 06:22] VITALS: BP 129/85
--- NOTE | 2019-11-06 07:54 | IPNPDOC ---
Progress Note Date of Service: Nov 06, 2019 Progress Note SUBJECT: Patient is a 39 yo s/p ppd #8, admitted for pre-eclampsia with severe BP hd #4. She has been ambulating, voiding spontaneously without issue and tolerating regular diet. Breast feeding without issue. Reports lochia is mild. Patient is ambulating well. Denies any pain. No headaches or visual disturbances. Stopped magnesium sulfate over 24hrs. On Labetolol 300mg PO BID and Nifedipin XL 30mg over 24hrs with normal BP. No dizziness. OBJECTIVE: VITAL SIGNS: Within normal limits, afebrile. Alert and oriented times three. Breath sounds clear to auscultation. Heart rate: Regular rate and rhythm, no murmurs, rubs or gallops. Abdomen: Fundus firm at U-2. Soft, NTTP. LE mild edema. ASSESSMENT: Patient is a 39 yo s/p ppd #8, admitted for pre-eclampsia with severe BP hd #4. BP now in normal range and diuresing well and no headaches. Tolerating medicine well. PLAN: 1. Discharge to home today. 2. Tylenol for pain. 3. Encourage breast feeding and ambulation. 4. Follow up BP visit in 11/09/2019 in clinic. 5. Discussed return precautions at length. 6. Written Rx for same BP medications explained to patient. VS, I&O, 24H, Fishbone Vital Signs/I&O Vital Signs Date Time Temp Pulse Resp B/P (MAP) Pulse Ox O2 Delivery O2 Flow Rate FiO2 11/06/19 06:22 98.1 69 18 129/85 (100) Room Air 11/05/19 14:00 98 Evonne Buck MD Nov 06, 2019 07:54
[2019-11-06] MEDS: PRENATAL VITAMINS CHEWABLE TABLET PO SCH (08:27)
[2019-11-06] MEDS: DOCUSATE SODIUM 100 MG CAP PO SCH (08:27)
[2019-11-06 08:28] VITALS: BP 142/82
[2019-11-06] MEDS: LABETALOL 100 MG TAB PO SCH (08:28)
[2019-11-06] MEDS: NIFEdipine 30 MG XL TAB PO SCH (08:29)
== END 2019-11-06 10:55 | disposition home or self-care (01) | DRG 776 ==
LOC: M LDO 14:18 → M LDI 11-04 09:28 → M OBS 11-04 22:00
PROVIDERS: ADMIT Obstetrics & Gynecology; ATTEND Obstetrics & Gynecology
DX: O14.15 Severe pre-eclampsia, complicating the puerperium (principal)